=== PATIENT | male | born 1930 | race Caucasian/White ===

== ENCOUNTER 2017-06-11 00:59 | Inpatient (IN) | payer MEDICARE ==
[2017-06-11] VITALS (13 sets, daily range): BP systolic 126–189; BP diastolic 65–103; PULSE 53–78; RESP 16–20; TEMP 97.8–98.3; O2SAT 94–99
[~2017-06-11] VITALS: Ht 172.7 cm; Wt 77.0 kg
[~2017-06-11 00:59] MED LIST: CELE100; ROSU5
[2017-06-11] MEDS ORDERED: ROSU10 PO ×2 (01:32→01:40)
[2017-06-11] MEDS ORDERED: CELE100C PO ×2 (01:33→01:34)
[2017-06-11] MEDS ORDERED: ROSU5 PO (01:33)
[2017-06-11] MEDS ORDERED: LISI10TA3 PO (01:38)
[2017-06-11] MEDS ORDERED: CELE200C PO (01:39)
--- NOTE | 2017-06-11 01:44 | PD ---
HPI Chief Complaint: Chest Pain Time Seen by Provider: 01:37 Travel History International Travel<30 days: No Contact w/Intl Traveler<30days: No Traveled to known affect area: No History of Present Illness HPI The patient is a 86-year-old male who presents to the emergency department for chest pain. The patient was playing golf earlier today when he developed substernal chest pain which she describes as "indigestion ". The pain was nonradiating, described as indigestion, not associated with any shortness of breath, nausea, vomiting, or abdominal pain. The patient states this started to spray: He went home, the chest pain resolved. The initial chest pain lasted for approximately 20 minutes. The patient then was lying down earlier tonight watching TV when he developed substernal chest pain again which he described as indigestion. The pain lasted for 2 hours and then resolved. The patient does have a history of hypertension and hyperlipidemia, however, denies any known history of coronary artery disease, tobacco use, or diabetes. The patient denies having a previous stress test or cardiac catheterization. He denies any exertional symptoms except for the chest pain while playing golf. The patient's primary physician is Dr. Gabriele Winter. ON LICENSE OF [facility] Past Medical History Arthritis: Yes High Cholesterol: Yes Diminished Hearing: Yes ([place]) Past Surgical History Genitourinary Surgery: Yes (FOR DIFFICULTY URINATING) Social History Alcohol Use: Yes (RARE) Tobacco Use: No Substance Use: No Allergies-Medications (Allergen,Severity, Reaction): Coded Allergies: zolpidem (Unverified Allergy, Mild, "OUT OF IT", 06/11/17) Reported Meds & Prescriptions Reported Meds & Active Scripts Active Reported Crestor (Rosuvastatin Calcium) 10 Mg Tab 10 Mg PO DAILY Celebrex (Celecoxib) 200 Mg Cap 200 Mg PO DAILY Lisinopril 10 Mg Tab 10 Mg PO DAILY Review of Systems Except as stated in HPI: all other systems reviewed are Neg HENT: No: Lightheadedness Cardiovascular: Positive: Chest Pain or Discomfort, No: Diaphoresis, Dyspnea on exertion Respiratory: No: Shortness of Breath Gastrointestinal: Positive: Indigestion, No: Nausea, Vomiting, Abdominal Pain Musculoskeletal: Positive: Edema Neurologic: No: Dizziness Physical Exam Narrative GENERAL: Awake, alert, nontoxic-appearing 86 year old male who appears his stated age and is in no acute respiratory distress. SKIN: Focused skin assessment warm/dry. HEAD: Atraumatic. Normocephalic. EYES: No injection or drainage. ENT: No nasal bleeding or discharge. Mucous membranes pink and moist. NECK: Trachea midline. No JVD. CARDIOVASCULAR: Regular rate and rhythm. No murmur appreciated. RESPIRATORY: No accessory muscle use. Clear to auscultation. Breath sounds equal bilaterally. GASTROINTESTINAL: Abdomen soft, non-tender, nondistended. No epigastric tenderness. MUSCULOSKELETAL: No obvious deformities. No clubbing. No cyanosis. Trace pitting edema lower extremity is bilateral. NEUROLOGICAL: Awake and alert. No obvious cranial nerve deficits. Motor grossly within normal limits. Normal speech. PSYCHIATRIC: Appropriate mood and affect; insight and judgment normal. Data Data Last Documented VS Vital Signs Date Time Temp Pulse Resp B/P (MAP) Pulse Ox O2 Delivery O2 Flow Rate FiO2 06/11/17 01:49 153/88 (109) 134/65 (88) 06/11/17 01:41 69 18 98 Room Air 06/11/17 01:01 98.3 Orders Orders Electrocardiogram (06/11/17 ) Electrocardiogram (06/11/17 01:37) Ckmb (Isoenzyme) Profile (06/11/17 01:37) Complete Blood Count With Diff (06/11/17 01:37) Comprehensive Metabolic Panel (06/11/17 01:37) Magnesium (Mg) (06/11/17 01:37) Prothrombin Time / Inr (Pt) (06/11/17 01:37) Act Partial Throm Time (Ptt) (06/11/17 01:37) Troponin I (06/11/17:37) Lipase (06/11/17 01:37) Chest, Single Ap (06/11/17 01:37) Ecg Monitoring (06/11/17 01:37) Bilateral Bp Monitoring (06/11/17 01:37) Iv Access Insert/Monitor (06/11/17:37) Oximetry (06/11/17 01:37) Oxygen Administration (06/11/17 01:37) Aspirin Chew (Aspirin Chew) (06/11/17 01:45) Sodium Chloride 0.9% Flush (Ns Flush) (06/11/17 01:45) Sodium Chlorid 0.9% 500 Ml Inj (Ns 500 M (06/11/17 01:45) CKMB (06/11/17 01:40) CKMB% (06/11/17 01:40) Heparin Infusion ADITHYA.Q1H (06/11/17 02:26) Heparin Inj (Heparin Inj) (06/11/17 02:30) Heparin Inj (Heparin Inj) (06/11/17 08:30) Heparin Inj (Heparin Inj) (06/11/17 08:30) Heparin-D5w 25,000 U/250 Ml (Heparin-D5w (06/11/17 02:30) Cbc No Diff, Includes Plts (06/14/17 06:00) Act Partial Throm Time (Ptt) (06/11/17 09:26) Occult Blood (Hemoccult) Stool (06/11/17 02:26) Admit Order (Ed Use Only) (06/11/17 02:34) Labs Laboratory Tests Test 06/11/17 01:40 White Blood Count 8.4 TH/MM3 Red Blood Count 5.19 MIL/MM3 Hemoglobin 16.3 GM/DL Hematocrit 47.8 % Mean Corpuscular Volume 92.2 FL Mean Corpuscular Hemoglobin 31.4 PG Mean Corpuscular Hemoglobin Concent 34.0 % Red Cell Distribution Width 15.1 % Platelet Count 174 TH/MM3 Mean Platelet Volume 8.4 FL Neutrophils (%) (Auto) 77.5 % Lymphocytes (%) (Auto) 13.0 % Monocytes (%) (Auto) 5.3 % Eosinophils (%) (Auto) 3.7 % Basophils (%) (Auto) 0.5 % Neutrophils # (Auto) 6.5 TH/MM3 Lymphocytes # (Auto) 1.1 TH/MM3 Monocytes # (Auto) 0.4 TH/MM3 Eosinophils # (Auto) 0.3 TH/MM3 Basophils # (Auto) 0.0 TH/MM3 CBC Comment DIFF FINAL Differential Comment Prothrombin Time 10.0 SEC Prothromb Time International Ratio 0.9 RATIO Activated Partial Thromboplast Time 22.6 SEC Blood Urea Nitrogen 23 MG/DL Creatinine 1.28 MG/DL Random Glucose 97 MG/DL Total Protein 7.7 GM/DL Albumin 3.6 GM/DL Calcium Level 9.1 MG/DL Magnesium Level 2.0 MG/DL Alkaline Phosphatase 82 U/L Aspartate Amino Transf (AST/SGOT) 34 U/L Alanine Aminotransferase (ALT/SGPT) 39 U/L Total Bilirubin 0.5 MG/DL Sodium Level 140 MEQ/L Potassium Level 4.1 MEQ/L Chloride Level 106 MEQ/L Carbon Dioxide Level 26.7 MEQ/L Anion Gap 7 MEQ/L Estimat Glomerular Filtration Rate 53 ML/MIN Total Creatine Kinase 189 U/L Creatine Kinase MB 8.0 NG/ML Troponin I 0.30 NG/ML Lipase 239 U/L MDM Medical Decision Making Medical Screen Exam Complete: Yes Emergency Medical Condition: Yes Medical Record Reviewed: Yes Interpretation(s) EKG reveals normal sinus rhythm with a rate of 75. Nonspecific ST and T-wave changes. Nonspecific T wave changes noted in lead V6, 1, and aVL. ST changes noted in lead 2 and aVF. No old EKG to compare. Last Impressions Chest X-Ray 06/11/17 0137 Signed Impressions: Service Date/Time: Sunday, June 11, 2017 01:39 - CONCLUSION: No acute disease. Jose Hamlin MD Laboratory Tests Test 06/11/17 01:40 White Blood Count 8.4 TH/MM3 Red Blood Count 5.19 MIL/MM3 Hemoglobin 16.3 GM/DL Hematocrit 47.8 % Mean Corpuscular Volume 92.2 FL Mean Corpuscular Hemoglobin 31.4 PG Mean Corpuscular Hemoglobin Concent 34.0 % Red Cell Distribution Width 15.1 % Platelet Count 174 TH/MM3 Mean Platelet Volume 8.4 FL Neutrophils (%) (Auto) 77.5 % Lymphocytes (%) (Auto) 13.0 % Monocytes (%) (Auto) 5.3 % Eosinophils (%) (Auto) 3.7 % Basophils (%) (Auto) 0.5 % Neutrophils # (Auto) 6.5 TH/MM3 Lymphocytes # (Auto) 1.1 TH/MM3 Monocytes # (Auto) 0.4 TH/MM3 Eosinophils # (Auto) 0.3 TH/MM3 Basophils # (Auto) 0.0 TH/MM3 CBC Comment DIFF FINAL Differential Comment Prothrombin Time 10.0 SEC Prothromb Time International Ratio 0.9 RATIO Activated Partial Thromboplast Time 22.6 SEC Blood Urea Nitrogen 23 MG/DL Creatinine 1.28 MG/DL Random Glucose 97 MG/DL Total Protein 7.7 GM/DL Albumin 3.6 GM/DL Calcium Level 9.1 MG/DL Magnesium Level 2.0 MG/DL Alkaline Phosphatase 82 U/L Aspartate Amino Transf (AST/SGOT) 34 U/L Alanine Aminotransferase (ALT/SGPT) 39 U/L Total Bilirubin 0.5 MG/DL Sodium Level 140 MEQ/L Potassium Level 4.1 MEQ/L Chloride Level 106 MEQ/L Carbon Dioxide Level 26.7 MEQ/L Anion Gap 7 MEQ/L Estimat Glomerular Filtration Rate 53 ML/MIN Total Creatine Kinase 189 U/L Troponin I 0.30 NG/ML Lipase 239 U/L Differential Diagnosis Differential diagnosis includes acute coronary syndrome, STEMI, esophageal spasm , GERD, pancreatitis, gastritis, peptic ulcer disease. Narrative Course IV was established, labs are drawn and sent, and the patient was placed on cardiac telemetry monitoring and continuous pulse oximetry monitoring. EKG was ordered and interpreted. Chest x-ray was obtained. The patient was chest pain- free upon arrival, therefore, no nitroglycerin sublingual was administered. The patient did receive 162 mg of aspirin orally. Chest x-rays unremarkable. Initial troponin is 0.3, patient does have EKG changes but no ST elevations indicate STEMI. The patient appears to have a NSTEMI. The patient was reevaluated at 2:20 AM, he was still chest pain-free. The patient was placed on a heparin drip and will be admitted to the medical service with consultation to cardiology. The patient be kept nothing by mouth. I did advise the patient and his at bedside of the results and future plan. Physician Communication Physician Communication The on-call medical service was paged for admission. I discussed the patient with Dr. Alfaro who agrees with admission. Diagnosis Primary Impression: NSTEMI (non-ST elevated myocardial infarction) Admitting Information Admitting Physician Requests: Admit Condition: Stable Pranay Choe MD Jun 11, 2017 01:44
[2017-06-11] MEDS ORDERED: ASPIRIN 81 MG CHEW TAB PO ONE (01:45)
[2017-06-11] MEDS ORDERED: SODIUM CHLORID 0.9% 500 ML INJ 500 ML IV ONE (01:45)
[2017-06-11] MEDS ORDERED: SODIUM CHLORIDE 0.9% FLUSH 10 ML FLUSH IVF PRN (01:45)
[2017-06-11 01:50] LABS: AUTOMATED NEUTROPHIL # 6.5 TH/MM3 (1.8-7.7); BASOPHIL % 0.5 % (0.0-2.0); EOSINOPHIL # 0.3 TH/MM3 (0-0.4); EOSINOPHIL % 3.7 % (0.0-4.0); HEMATOCRIT 47.8 % (39.0-51.0); HEMO FLAGS DIFF FINAL; LYMPHOCYTE # 1.1 TH/MM3 (1.0-4.8); MEAN CELL VOLUME 92.2 FL (80.0-100.0); MEAN CORPUSCULAR HEMOGLOBIN 31.4 PG (27.0-34.0); MONO % 5.3 % (0.0-8.0); NEUT % 77.5 % (16.0-70.0); PLATELET COUNT 174 TH/MM3 (150-450); RED BLOOD COUNT 5.19 MIL/MM3 (4.50-5.90); RED CELL DISTRIBUTION WIDTH 15.1 % (11.6-17.2); WHITE BLOOD COUNT 8.4 TH/MM3 (4.0-11.0)
[2017-06-11 01:59] LABS: APTT (PATIENT) 22.6 SEC (24.3-30.1); INTERNATIONAL NORMALIZED RATIO 0.9 RATIO
--- NOTE | 2017-06-11 02:01 | RADRPT ---
EXAM DATE/TIME: 06/11/2017 01:39 [place] COMPARISON: No previous studies available for comparison. INDICATIONS : Chest pain while playing golf MEDICAL HISTORY : Hypercholesterolemia. SURGICAL HISTORY : Laminectomy ENCOUNTER: Initial ACUITY: 1 day PAIN SCORE: 7/10 LOCATION: Bilateral chest FINDINGS: A single view of the chest demonstrates the lungs to be symmetrically aerated without evidence of mas s, infiltrate or effusion. The cardiomediastinal contours are unremarkable. Osseous structures are intact. CONCLUSION: No acute disease. Jose Hamlin MD on June 11, 2017 at 1:59 Board Certified Radiologist. This report was verified electronically.
[2017-06-11 02:13] LABS: ALT (GPT) 39 U/L (12-78); ANION GAP 7 MEQ/L (5-15); AST (GOT) 34 U/L (15-37); BICARBONATE 26.7 MEQ/L (21.0-32.0); BLOOD UREA NITROGEN 23 MG/DL (7-18); CHLORIDE 106 MEQ/L (98-107); GLOMERULAR FILTRATION RATE 53 ML/MIN (>89); POTASSIUM 4.1 MEQ/L (3.5-5.1); SODIUM (NA) 140 MEQ/L (136-145)
[2017-06-11 02:17] LABS: ALKALINE PHOSPHATASE 82 U/L (45-117); CREATINE KINASE 189 U/L (39-308); TOTAL BILIRUBIN ADULT 0.5 MG/DL (0.2-1.0)
[2017-06-11] MEDS ORDERED: HEPARIN SODIUM - IV 10,000 UNITS/10 ML VIAL IV ONE (02:30)
[2017-06-11] MEDS ORDERED: HEPARIN-D5W 25,000 U/250 ML 250 ML IV ONE (02:30)
[2017-06-11] MEDS ORDERED: LACTULOSE SYRUP 20 GM/30 ML CUP PO PRN (02:45)
[2017-06-11] MEDS ORDERED: ACETAMINOPHEN/HYDROcodone 325 MG/5 MG TAB PO PRN (02:45)
[2017-06-11] MEDS ORDERED: BISACODYL 10 MG SUPP RECTAL PRN (02:45)
[2017-06-11] MEDS ORDERED: MORPHINE SULFATE 4 MG/ML INJ IV PUSH PRN (02:45)
[2017-06-11] MEDS ORDERED: ONDANSETRON HCL 4 MG/2 ML VIAL IVP PRN (02:45)
[2017-06-11] MEDS ORDERED: SODIUM CHLORIDE 0.9% FLUSH 10 ML FLUSH IV FLUSH PRN ×2 (02:45→13:15)
[2017-06-11] MEDS ORDERED: SENNOSIDES 8.6 MG TAB PO PRN (02:45)
[2017-06-11] MEDS ORDERED: MAGNESIUM HYDROXIDE SUSP 30 ML CUP PO PRN (02:45)
[2017-06-11] MEDS ORDERED: ACETAMINOPHEN 325 MG TAB PO PRN ×2 (02:45→13:15)
[2017-06-11] MEDS: SODIUM CHLOR 0.9% 1000 ML INJ 1,000 ML IV SCH ×2 (02:54→12:42)
--- NOTE | 2017-06-11 04:32 | HHI.HP ---
HPI [facility] Primary Care Physician Unknown Admission Diagnosis NSTEMI Diagnoses: (1) NSTEMI (non-ST elevated myocardial infarction) Diagnosis: Principal (2) Dehydration Diagnosis: Principal (3) HTN (hypertension) Diagnosis: Principal Travel History International Travel<30 Days: No Contact w/Intl Traveler <30 Da: No Traveled to Known Affected Are: No History of Present Illness This is an 86-year-old male with a PMH of HTN and Hyperlipidemia who presented to the ER with complaint of chest pain starting earlier tonight. States had acute onset of substernal chest pain while watching TV, thought it was indigestion, however had recurrent episode shortly after lasting several hours. No associated SOB or diaphoresis. On arrival, BP 129/103, HR 78, O2 sat 99% on RA, Afebrile. CBC unremarkable. Chemistry unremarkable except for GFR 53, BUN 23. Troponin 0.30. INR 0.9. EKG with no acute ischemia. CXR negative. Started on Heparin gtt in ER. Review of Systems Except as stated in HPI: all other systems reviewed are Neg ROS: 14 point review of systems otherwise negative. Past Family Social History Past Medical History PMH: HTN and Hyperlipidemia Past Surgical History PAST SURGICAL HISTORY: Bladder Surgery Allergies: Coded Allergies: zolpidem (Unverified Allergy, Mild, "OUT OF IT", 06/11/17) Family History PAST FAMILY HISTORY: Reviewed. No h/o DM or CAD Social History PAST SOCIAL HISTORY: Occasional alcohol. Negative for tobacco or drugs. Physical Exam Vital Signs Vital Signs Date Time Temp Pulse Resp B/P (MAP) Pulse Ox O2 Delivery O2 Flow Rate FiO2 06/11/17 04:25 98.0 60 18 126/75 (92) 94 06/11/17 01:49 153/88 (109) 134/65 (88) 06/11/17 01:41 69 18 153/88 (109) 98 Room Air 134/65 (88) 06/11/17 01:38 98 Room Air 06/11/17 01:38 98 Room Air 06/11/17 01:36 71 16 153/88 (109) 97 Room Air 06/11/17 01:01 98.3 78 16 189/103 (131) 99 Room Air Physical Exam PE: GENERAL: Elderly male in no acute distress. HEENT: PERRLA, EOMI. No scleral icterus or conjunctival pallor. No lid lag or facial droop. CARDIOVASCULAR: Regular rate and rhythm. No obvious murmurs to auscultation. No chest tenderness to palpation. RESPIRATORY: No obvious rhonchi or wheezing. Clear to auscultation. Breath sounds equal bilaterally. GASTROINTESTINAL: Abdomen soft, non-tender, nondistended. BS normal. MUSCULOSKELETAL: Extremities without clubbing, cyanosis, or edema. No obvious deformities. NEUROLOGICAL: Awake, alert and oriented x4. No focal neurologic deficits. Moving both upper and lower extremities spontaneously. Laboratory Laboratory Tests Test 06/11/17 01:40 White Blood Count 8.4 Red Blood Count 5.19 Hemoglobin 16.3 Hematocrit 47.8 Mean Corpuscular Volume 92.2 Mean Corpuscular Hemoglobin 31.4 Mean Corpuscular Hemoglobin Concent 34.0 Red Cell Distribution Width 15.1 Platelet Count 174 Mean Platelet Volume 8.4 Neutrophils (%) (Auto) 77.5 Lymphocytes (%) (Auto) 13.0 Monocytes (%) (Auto) 5.3 Eosinophils (%) (Auto) 3.7 Basophils (%) (Auto) 0.5 Neutrophils # (Auto) 6.5 Lymphocytes # (Auto) 1.1 Monocytes # (Auto) 0.4 Eosinophils # (Auto) 0.3 Basophils # (Auto) 0.0 CBC Comment DIFF FINAL Differential Comment Prothrombin Time 10.0 Prothromb Time International Ratio 0.9 Activated Partial Thromboplast Time 22.6 Blood Urea Nitrogen 23 Creatinine 1.28 Random Glucose 97 Total Protein 7.7 Albumin 3.6 Calcium Level 9.1 Magnesium Level 2.0 Alkaline Phosphatase 82 Aspartate Amino Transf (AST/SGOT) 34 Alanine Aminotransferase (ALT/SGPT) 39 Total Bilirubin 0.5 Sodium Level 140 Potassium Level 4.1 Chloride Level 106 Carbon Dioxide Level 26.7 Anion Gap 7 Estimat Glomerular Filtration Rate 53 Total Creatine Kinase 189 Creatine Kinase MB 8.0 Troponin I 0.30 Lipase 239 Result Diagram: 06/11/1713906/11/17139 Caprini VTE Risk Assessment Caprini VTE Risk Assessment: Mod/High Risk (score >= 2) Caprini Risk Assessment Model Point Value = 1 Point Value = 2 Point Value = 3 Point Value = 5 Age 41-60 Minor surgery BMI > 25 kg/m2 Swollen legs Varicose veins or History of unexplained or recurrent spontaneous Oral contraceptives or hormone replacement Sepsis (< 1 month) Serious lung disease, including pneumonia (< 1 month) Abnormal pulmonary function Acute myocardial infarction Congestive heart failure (< 1 month) History of inflammatory bowel disease Medical patient at bed rest Age 61-74 Arthroscopic surgery Major open surgery (> 45 min) Laparoscopic surgery (> 45 min) Malignancy Confined to bed (> 72 hours) Immobilizing plaster cast Central venous access Age >= 75 History of VTE Family history of VTE Factor V Leiden Prothrombin [id number] Lupus anticoagulant Anticardiolipin antibodies Elevated serum homocysteine Heparin-induced thrombocytopenia Other congenital or acquired thrombophilia Stroke (< 1 month) Elective arthroplasty Hip, pelvis, or leg fracture Acute spinal cord injury (< 1 month) Prophylaxis Regimen Total Risk Factor Score Risk Level Prophylaxis Regimen 0-1 Low Early ambulation 2 Moderate Order ONE of the following: *Sequential Compression Device (SCD) *Heparin 5000 units SQ BID 3-4 Higher Order ONE of the following medications: *Heparin 5000 units SQ TID *Enoxaparin/Lovenox 40 mg SQ daily (WT < 150 kg, CrCl > 30 mL/min) *Enoxaparin/Lovenox 30 mg SQ daily (WT < 150 kg, CrCl > 10-29 mL/min) *Enoxaparin/Lovenox 30 mg SQ BID (WT < 150 kg, CrCl > 30 mL/min) AND/OR *Sequential Compression Device (SCD) 5 or more Highest Order ONE of the following medications: *Heparin 5000 units SQ TID (Preferred with Epidurals) *Enoxaparin/Lovenox 40 mg SQ daily (WT < 150 kg, CrCl > 30 mL/min) *Enoxaparin/Lovenox 30 mg SQ daily (WT < 150 kg, CrCl > 10-29 mL/min) *Enoxaparin/Lovenox 30 mg SQ BID (WT < 150 kg, CrCl > 30 mL/min) AND *Sequential Compression Device (SCD) Assessment and Plan Problem List: (1) NSTEMI (non-ST elevated myocardial infarction) ICD Code: I21.4 - Non-ST elevation (NSTEMI) myocardial infarction Status: Acute (2) Dehydration ICD Code: E86.0 - Dehydration (3) HTN (hypertension) ICD Code: I10 - Essential (primary) hypertension Assessment and Plan A/P: 1. NSTEMI: c/o acute onset of chest pain, Trop 0.30, EKG w/ no acute ST changes. Started on Heparin gtt in ER, will continue w/ Heparin. ASA, Statin, Metoprolol. Consult Cardiology for further evaluation, NPO for possible Cath. NTG/Morphine prn. 2. Dehydration: GFR 53, BUN 23. IVF for hydration, repeat labs in am. 3. HTN: BP 180's on arrival, likely secondary to c/o chest pain. BP currently 126/75, HR 60. Will monitor. 4. DVT Prophylaxis: Heparin gtt 5. Social work for dc planning as needed. 6. Case discussed w/ ER physician at length. Physician Certification 2 Midnight Certification Type: Admission for Inpatient Services Order for Inpatient Services The services are ordered in accordance with Medicare regulations or non- Medicare payer requirements, as applicable. In the case of services not specified as inpatient-only, they are appropriately provided as inpatient services in accordance with the 2-midnight benchmark. Estimated LOS (days): 2 days is the estimated time the patient will need to remain in the hospital, assuming treatment plan goals are met and no additional complications. Post-Hospital Plan: Not yet determined Juliet Alfaro MD Jun 11, 2017 04:32
[2017-06-11] MEDS: ATORVASTATIN 20 MG TAB PO SCH (08:03)
[2017-06-11] MEDS: METOPROLOL TARTRATE 25 MG TAB PO SCH ×2 (08:03→21:00)
[2017-06-11] MEDS: DOCUSATE SODIUM 50 MG/SENNA 8.6 MG TAB PO SCH ×2 (08:03→21:00)
[2017-06-11] MEDS ORDERED: HEPARIN SODIUM - IV 10,000 UNITS/10 ML VIAL IV PRN ×2 (08:30)
[2017-06-11] MEDS ORDERED: ASPIRIN EC 81 MG TABEC PO SCH (09:00)
[2017-06-11] MEDS ORDERED: LISINOPRIL 10 MG TAB PO SCH (09:00)
[2017-06-11] MEDS ORDERED: SODIUM CHLORIDE 0.9% FLUSH 10 ML FLUSH IV FLUSH SCH (09:00)
[2017-06-11] MEDS ORDERED: MIDAZOLAM HCL 2 MG/2 ML VIAL ONE (11:44)
[2017-06-11] MEDS ORDERED: HEPARIN-NS/PF INJ 500 ML ONE (11:44)
[2017-06-11] MEDS ORDERED: NITROGLYCERIN INJ 5 ML ONE (11:44)
--- NOTE | 2017-06-11 11:53 | MB ---
cc: PILAR HANSEN M.D. DATE OF CONSULTATION: 06/11/2017 REASON FOR CONSULTATION Evaluation of chest pain and elevated troponin. CHIEF COMPLAINT Chest pain. HISTORY OF PRESENT ILLNESS This is an 86-year-old man with a history of hypertension and hyperlipidemia. He has never had any previous cardiac symptoms. He had chest pain yesterday after playing golf around 5:00 p.m. Then at 10:00 p.m. he got chest pain and it did not resolve, it took a few hours, and eventually resolved on their way to the hospital. He describes it as substernal discomfort like an indigestion. There is no family history of cardiac disease only a history of hypertension and hyperlipidemia. PAST MEDICAL HISTORY 1. Arthritis. 2. Low back pain. 3. Left total hip replacement. 4. Previous TURP. 5. Hypertension. 6. Hyperlipidemia. SOCIAL HISTORY He is from [place], [place], drinks alcohol rarely, has never smoked. ALLERGIES ZOLPIDEM. MEDICATIONS 1. Crestor 10 mg daily. 2. Celebrex 200 mg daily. 3. Lisinopril 10 mg daily. REVIEW OF SYSTEMS Noncontributory. PHYSICAL EXAMINATION GENERAL: A well-developed, well-nourished man in no acute distress. VITAL SIGNS: Vital signs are charted. HEENT: Exam unremarkable. NECK: No JVD. No bruits. CHEST: Clear to auscultation. CARDIAC: S1, S2, regular rate and rhythm. No murmurs or gallops. ABDOMEN: Soft, nontender. No masses or organomegaly. EXTREMITIES: No clubbing or cyanosis. He has trace lower extremity edema. Pulses are intact. LABORATORY Hematocrit 47.8, white count normal, platelet count 174,000. Creatinine 1.28. Troponin has gone from 0.30 to 0.45, indicative of a non-ST segment elevation PR. CPK-MB fraction is elevated as well. IMAGING Chest x-ray shows no acute disease. EKG EKG shows significant ST-T wave changes which combined with the troponin are compatible with ischemia. IMPRESSION An 86-year-old man physically active who presents with an acute non-ST segment elevation PR. His EKG is abnormal. He had prolonged chest pain last night. PLAN The plan is to perform diagnostic cardiac catheterization with possible intervention. Informed consent has been obtained from the patient in the presence of his significant other named Judi. Further therapy to be determined. MD SARAH Jones/MAURA /11:21 AM /11:40 AM
[2017-06-11] MEDS ORDERED: BIVALIRUDIN 250 MG VIAL ONE (12:16)
[2017-06-11] MEDS ORDERED: STERILE WATER FOR INJECTION 10 ML VIAL ONE (12:16)
--- NOTE | 2017-06-11 12:32 | EKG ---
Date Performed: 06/11/2017 Time Performed: 01:08:52 PTAGE: 86 years EKG: Sinus rhythm LEFT ANTERIOR FASCICULAR BLOCK NONSPECIFIC ST & T-WAVE ABNORMALITY ABNORMAL ECG NO PREVIOUS TRACING DOCTOR: Gabriele Orozco Interpretating Date/Time 06/11/2017 12:27:56
[2017-06-11] MEDS ORDERED: TICAGRELOR 90 MG TAB PO ONE (12:52)
[2017-06-11] MEDS ORDERED: BIVALIRUDIN INJ 250 MG in SODIUM CHLORIDE 0.9% INJ 50 ML IV SCH (13:05)
--- NOTE | 2017-06-11 13:10 | CATHPROC ---
[employer] HIS Report Study Information Study Number Admission Scheduled Start Study Start [id number] Jun 11 2017 2:36AM 06/11/2017 Jun 11 2017 11:32AM [place] [facility] Cardiac Catheterization Admit Source Facility Department Emergency department [facility] - Partner Marketing Intern Physician and Clinical Staff Initial MD Granados, Rikki Library Assistant Alina Rodgers,REY Other cathlab, cathlab Recorder Tiffanie Garcia,CEMENT [place] HELPER TECH2 Scrub Cody Diaz RCIS(BS) Procedures Performed Procedure Location (Site) Vessel Name Angiogram LV LV Ventricle Coronary Angiograms LCA Left Coronary Coronary Angiograms RCA Right Coronary Drug Eluting Inflatio CIRC Dist CIRC Drug Eluting Inflatio LAD Mid Left Coronary L Heart Cath PTCA CIRC Dist CIRC PTCA LAD Mid Left Coronary Wire insertion Fem Art (right) Femoral Art Equipment 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 145 INFINITI [id number] CATHETER *[id number] *[id number] 12:54 [facility]IG/[facility] ANGIOSEAL, FR6 VIP FR 6 Used *[id number] 11:44 MEDLINE INDUSTRIES PACK, CCL CUSTOM * Used *[id number] 11:44 MEDLINE PACER PEN, SKIN DUAL W/ RULER * Used *[id number] 12:25 MEDTRONIC BALLOON, 2.5 X 20MM EUPHORA 20MM Used *[id number] BALLOON, 4.0 X 15MM NC [id number] 12:32 MEDTRONIC 15MM Used EUPHORA *[id number] [id number] 12:42 MEDTRONIC STENT, 3.5 18MM TYE 3.5 18MM Used *[id number] 12:29 MEDTRONIC STENT, 3.5 22MM TYE 3.5 22MM [id number] 12:26 [employer] 30 KATHARINE INDEFLATOR Used *[id number] 11:44 [employer] SHEATH, FR6.5 PRELUDE 11CM FR 6.5 038ACT Used *[id number] [id number] 11:44 [employer] WIRE, 3MMJ .035 180CM 180CM Used *[id number] 11:44 NAMIC MANIFOLD, 4 PORT * Used *[id number] 12:20 NAMIC TUBING, HIGH PRESSURE 20" 20" Used *[id number] 11:44 [employer]COMED OMNIPAQUE, 350 MG, 100ML 100ML [id number] Used 12:10 NYCOMED OMNIPAQUE, 350 MG, 50ML 50ML [id number] Used [id number] 11:44 [facility] BLANKET,WARM AIR CCL * Used *[id number] Equipment Model, Serial, Lot Number and Expiration Data Description Model Number Serial Number Lot Number Expiration Date STENT, 3.5 18MM TYE [id number] 03-07-2019 STENT, 3.5 22MM TYE [id number] 04-19-2019 History: Current Medications Medication Dosage/Unit Route Frequency Last Date/Time Taken CRESTOR LISINOPRIL History: Allergies Allergy Reaction zolpidem "OUT OF IT" History: Risk Factors Family History of Hypertension Dyslipidemia Previous LA Previous Heart Failure Premature CAD Yes Yes No No No Prior Valve Prior PCI Prior CABG Surgery No No No Cerebrovascular Peripheral Artery Chronic Lung On Dialysis Diabetes Disease Disease Disease No No No No No History: Symptoms/Diagnosis Selection Items Angina-unstable Labs Hgb (g/dl) Hct (%) RBC (MIL/MM3) WBC (l/cumm) Platelets (thousands) 11.60-17.00 35.00-51.00 4.00-5.90 4.00-11.00 150.00-450.00 16.3 47.8 5.1 8.4 174 Glucose (mg/dl) BUN (mg/dl) Creatinine (mg/dl) BUN:Creatinine (1:x) 74.00-106.00 7.00-18.00 0.50-1.30 10.00-20.00 97 23 1.2 19.2 Na (meq/l) K (meq/l) Cl (meq/l) CO2 (mmol/L) Ca (mg/dl) 136.00-145.00 3.50-5.10 98.00-107.00 21.00-32.00 8.50-10.10 140 4.1 106 26.7 9.1 PT (sec) PTT (sec) INR (PTT:PT) 9.80-11.60 24.30-30.10 0.90-1.10 10 22.6 0.9 Troponin I (ng/ml) CPK-MB (ng/ML) 0.02-0.05 0.50-3.60 0.45 8.0 Medication Medication Total Dose (Bolus/Oral) Medication Total Dosage/Unit ANGIOMAX BOLUS 11 mL BRILINTA 180 mg NTG (IC) 200 mcg OXYGEN 2 l/min VERSED 1 mg Medications (Bolus/Oral) Medication Time Given Dosage/Unit Administered By Reason OXYGEN 06/11/2017 11:45:51 AM 2 l/min Alina Rodgers 2 l/min OXYGEN given in lab by Alina Rodgers RN via Nasal. Ordered by Rikki Granados. VERSED 06/11/2017 12:06:16 PM 1 mg Alina Rodgers 1 mg VERSED given in lab by Alina Rodgers RN in Right Antecubital via Peripheral IV. Ordered by Rikik Sung. ANGIOMAX BOLUS 06/11/2017 12:22:20 PM 11 mL Alina Rodgers 11 mL ANGIOMAX BOLUS given in lab by Alina Rodgers RN in Right Antecubital via Peripheral IV. Orde red by Rikki Granados. NTG (IC) 06/11/2017 12:35:19 PM 200 mcg Cody Diaz 200 mcg NTG (IC) given in lab by Cody Diaz RCIS(BS) in Right Groin via Intra-coronary. Ordered by Rikki Fu. BRILINTA 06/11/2017 12:57:18 PM 180 mg Alina Rodgers 180 mg BRILINTA given in lab by Alina Rodgers, REY via Oral. Ordered by Rikki Granados. Medication (Drip) Medication Time Given Dosage/Unit Concentration/Unit Diluent (ml) Solution ANGIOMAX DRIP 06/11/2017 12:23:32 PM 1.75 mg/kg/hr 250 mg 50 NaCl .9 1.75 mg/kg/hr ANGIOMAX DRIP given in lab by Alina Rodgers RN in Right Antecubital via Peripheral I V. Pump/Drip Flow = 26.25 ml/hr using NaCl .9 with a concentration of 250 mg in 50 ml. Ordered by Rikki Granados. IV Solutions 06/11/2017 11:44:49 AM 0 mL (IV) 500 NaCl .9 IV Solutions given in lab by Alina Rodgers RN in Right Antecubital via Peripheral IV. Pump/Drip Fl ow = 20 ml/hr using NaCl .9. Ordered by Rikki Granados. Initial Case Assessment Cardiovascular HR NIBP 54 150/87 Edema Present Skin color Skin None Normal Warm Dry Circulatory - Right Pulses Dorsalis Pedis Femoral 2 3 Scale (0,1,2,3,4,d) Circulatory - Left Pulses Dorsalis Pedis Femoral 2 3 Scale (0,1,2,3,4,d) Neurological State Oriented to time-place- Alert Moves all extremities person Respiration - General Respiration Rate SpO2 (%) (B/min) 14 98 Final Case Assessment Cardiovascular HR NIBP 59 153/96 Edema Present Skin color Skin None Normal Warm Dry Circulatory - Right Pulses Dorsalis Pedis Femoral 2 3 Scale (0,1,2,3,4,d) Circulatory - Left Pulses Dorsalis Pedis Femoral 2 3 Scale (0,1,2,3,4,d) Neurological State Oriented to time-place- Alert Moves all extremities person Respiration - General Respiration Rate SpO2 (%) O2 (lpm) (B/min) 14 98 2 Chronological Log Time Study Chronological Log 11:32:19 Patient arrived via Bed. 11:32:19 Patient Name, D.O.B, / Armband Verified By R.N. 11:32:20 Consent signed by the physician and the patient and verified by the Partner Marketing Intern staff. 11:32:21 Pre-op and post- op instructions given; patient acknowledges understanding of instructions. 11:32:22 Verbal Stimulation=2 Physical Stimulation=2 Airway=2 Respiration=2 TOTAL=8. (0=absent, 1=li mited, 2=present) 11:32:26 Patient has been NPO for More than 6Hrs. 11:32:26 NO Skin Breakdown- 11:32:28 Patient Warmer Placed on the Table. 11:32:32 A # 22 IV was noted in the Wrist (right). Grade = 0 11:32:37 A # 18 IV was noted in the Antecubital (right). Grade = 0 Vitals capture started with the following parameters, Patient=Adult, Interval=5 min, Initial Pr iatoyn=811 mmHg, 11:35:56 Deflation Rate=5 mmHg, Cuff placed on Right Arm 11:36:38 HR=54 bpm, VKYQ=601/87 mmhg, SpO2=98.0 %, Resp=14 B/min, Pain=0, Gurdeep=10, Arthur=2 Assessment: Initial Case, HR=54 BPM, OJYX=997/87 mmhg, Edema=None, Color=Normal, Skin = Warm, D ry Right Pulses: Will Ped=2, Femoral=3 11:37:42 Left Pulses: Will Ped=2, Femoral=3 Neurological: State=Alert, Ox3, SERNA Respiration: Resp=14 B/min, SpO2=98 % 11:41:37 HR=59 bpm, WSRX=016/92 mmhg, SpO2=97.0 %, Resp=14 B/min, Pain=0, Gurdeep=10, Arthur=2 IV Solutions given in lab by Alina Rodgers, REY in Right Antecubital via Peripheral IV. Pump/D rip Flow = 20 ml/hr 11:44:49 using NaCl .9. Ordered by Rikki Granados. 11:44:55 Bilateral groins prepped with 2% chlorhexidine, and draped after a 3 minute waiting time. 11:45:51 2 l/min OXYGEN given in lab by Alina Rodgers, REY via Nasal. Ordered by Rikki Granados. 11:46:38 HR=59 bpm, JNAA=186/88 mmhg, SpO2=96.0 %, Resp=20 B/min, Pain=0, Gurdeep=10, Arthur=2 11:49:22 Pressure channel 1 zeroed. 11:51:37 HR=58 bpm, KZEV=789/91 mmhg, SpO2=96.0 %, Resp=13 B/min, Pain=0, Gurdeep=10, Arthur=2 11:53:46 Reference ECG taken 11:56:38 HR=56 bpm, LBUO=712/91 mmhg, SpO2=98.0 %, Resp=13 B/min 12:01:39 HR=56 bpm, IGSM=496/97 mmhg, SpO2=99.0 %, Resp=12 B/min, Pain=0, Gurdeep=10, Arthur=2 Time Out. Correct patient, correct procedure, correct physician, power injector loaded,with con trast with surgical team 12:05:11 present. Time Out Concurred by MD and individual staff in procedure. 12:05:31 Case Start 12:06:16 1 mg VERSED given in lab by Alina Rodgers RN in Right Antecubital via Peripheral IV. Ord ered by Rikki Granados. 12:06:38 HR=60 bpm, UAUP=564/97 mmhg, SpO2=99.0 %, Resp=12 B/min, Pain=0, Gurdeep=10, Arthur=2 12:07:49 Access site was Right Femoral Artery. 12:07:58 A SHEATH, FR6.5 PRELUDE 11CM FR 6.5 was advanced into the Fem Art (right) using the Aster carreno Seldinger technique. A PIGTAIL ANG. 145 INFINITI CATHETER FR 6 was advanced over a wire. OMNIPAQUE, 350 MG, 50ML 50M L was used 12:09:26 for injections. Recorded Pressure: LV, HR=57, Condition=Condition 1 12:09:59 (Left Ventricle) LV 140/7/21 12:11:12 The LV was injected at 10 cc/sec for a total of 20. OMNIPAQUE, 350 MG, 50ML 50ML used. 12:11:41 HR=57 bpm, LNVA=882/86 mmhg, SpO2=99.0 %, Resp=12 B/min, Pain=0, Gurdeep=10, Arthur=2 Recorded Pressure: LV, Ao, HR=59, Condition=Condition 1 12:11:53 (Left Ventricle) LV 136/7/23, (Aorta) Ao 137/69/97 12:12:06 Catheter was removed A JL 4.5 INFINITI CATHETER FR 6 was advanced over a wire. OMNIPAQUE, 350 MG, 100ML 100ML was us ed for 12:12:41 injections. Recorded Pressure: Ao, HR=59, Condition=Condition 1 12:13:44 (Aorta) Ao 134/70/96 12:13:49 The LCA was injected and visualized at various angles. OMNIPAQUE, 350 MG, 100ML 100ML used . 12:16:38 HR=63 bpm, SMVI=906/85 mmhg, SpO2=99.0 %, Resp=16 B/min, Pain=0, Gurdeep=10, Arthur=2 12:16:38 Catheter was removed A 3DRC INFINITI CATHETER FR 6 was advanced over a wire. OMNIPAQUE, 350 MG, 100ML 100ML was used for 12:16:43 injections. 12:17:42 The RCA was injected and visualized at various angles. OMNIPAQUE, 350 MG, 100ML 100ML used . 12:20:36 Catheter was removed A XB 4.0 GUIDE CATHETER FR 6 was advanced over a wire. OMNIPAQUE, 350 MG, 100ML 100ML was used for 12:20:47 injections. 12:21:39 HR=57 bpm, APCX=585/89 mmhg, SpO2=97.0 %, Resp=13 B/min, Pain=0, Gurdeep=10, Arthur=2 12:22:14 A WIRE, BALANCE MIDDLEWEIGHT 190CM (INGRID) 190CM was inserted via Fem Art (right). 11 mL ANGIOMAX BOLUS given in lab by Alina Rodgers, REY in Right Antecubital via Peripheral IV . Ordered by Darwin 12:22:20 Brandt. 1.75 mg/kg/hr ANGIOMAX DRIP given in lab by Alina Rodgers, REY in Right Antecubital via Periph eral IV. Pump/Drip 12:23:32 Flow = 26.25 ml/hr using NaCl .9 with a concentration of 250 mg in 50 ml. Ordered by Bertha Granados. 12:24:10 Interventional wire has crossed the lesion A BALLOON, 2.5 X 20MM EUPHORA 20MM was inserted over WIRE, BALANCE MIDDLEWEIGHT 190CM (INGRID) 19 0CM 12:24:30 via the LAD Mid. A BALLOON, 2.5 X 20MM EUPHORA 20MM over a WIRE, BALANCE MIDDLEWEIGHT 190CM (INGRID) 190CM in the LAD 12:25:56 Mid was inflated using a 30 KATHARINE INDEFLATOR at 12 katharine for 25 sec. 12:26:38 HR=60 bpm, CCWP=031/91 mmhg, SpO2=98.0 %, Resp=14 B/min, Pain=0, Gurdeep=10, Arthur=2 A BALLOON, 2.5 X 20MM EUPHORA 20MM over a WIRE, BALANCE MIDDLEWEIGHT 190CM (INGRID) 190CM in the LAD 12:26:55 Mid was inflated using a 30 KTAHARINE INDEFLATOR at 8 katharine for 15 sec. 12:27:40 Balloon Removed. A STENT, 3.5 22MM TYE 3.5 22MM was advanced through a XB 4.0 GUIDE CATHETER FR 6 over a WIRE, BALANCE 12:28:24 MIDDLEWEIGHT 190CM (INGRID) 190CM. A STENT, 3.5 22MM TYE 3.5 22MM was deployed using a 30 KATHARINE INDEFLATOR at 12 atmospheres for 25 seconds in 12:30:11 the LAD Mid. 12:31:01 Delivery device removed A BALLOON, 4.0 X 15MM NC EUPHORA 15MM was inserted over WIRE, BALANCE MIDDLEWEIGHT 190CM (INGRID) 12:31:31 190CM via the LAD Mid. 12:32:26 HR=63 bpm, DCNF=638/101 mmhg, SpO2=99.0 %, Resp=14 B/min, Pain=0, Gurdeep=10, Arthur=2 A BALLOON, 4.0 X 15MM NC EUPHORA 15MM over a WIRE, BALANCE MIDDLEWEIGHT 190CM (INGRID) 190CM in t he 12:32:37 LAD Mid was inflated using a 30 KATHARINE INDEFLATOR at 16 katharine for 15 sec. A BALLOON, 4.0 X 15MM NC EUPHORA 15MM over a WIRE, BALANCE MIDDLEWEIGHT 190CM (INGRID) 190CM in t he 12:33:07 LAD Mid was inflated using a 30 KATHARINE INDEFLATOR at 20 katharine for 15 sec. 12:33:36 Balloon Removed. 12:35:19 200 mcg NTG (IC) given in lab by Cody Diza RCIS(BS) in Right Groin via Intra-coronary. Or dered by Rikki Granados. 12:36:47 HR=66 bpm, QKLI=362/92 mmhg, SpO2=98.0 %, Resp=14 B/min, Pain=0, Gurdeep=10, Arthur=2 12:38:38 Wire removed 12:38:40 A WIRE, BALANCE MIDDLEWEIGHT 190CM (INGRID) 190CM was inserted via Fem Art (right). CIRC 12:40:10 Interventional wire has crossed the lesion 12:41:41 HR=63 bpm, KYJK=111/93 mmhg, SpO2=97.0 %, Resp=15 B/min, Pain=0, Gurdeep=10, Arthur=2 A STENT, 3.5 18MM TYE 3.5 18MM was advanced through a XB 4.0 GUIDE CATHETER FR 6 over a WIRE, BALANCE 12:42:15 MIDDLEWEIGHT 190CM (INGRID) 190CM. A STENT, 3.5 18MM TYE 3.5 18MM was deployed using a 30 KATHARINE INDEFLATOR at 12 atmospheres for 40 seconds in 12:43:50 the CIRC Dist. 12:45:48 Delivery device removed 12:46:41 HR=64 bpm, XMET=196/95 mmhg, SpO2=95.0 %, Resp=13 B/min, Pain=0, Gurdeep=10, Arthur=2 A BALLOON, 3.5 12MM NC QUANTUM APEX MR 3.5 12MM over a WIRE, BALANCE MIDDLEWEIGHT 190CM (INGRID) 12:51:02 190CM in the CIRC Dist was inflated using a 30 KATHARINE INDEFLATOR at 16 katharine for 20 sec. A BALLOON, 3.5 12MM NC QUANTUM APEX MR 3.5 12MM over a WIRE, BALANCE MIDDLEWEIGHT 190CM (INGRID) 12:51:13 190CM in the CIRC Dist was inflated using a 30 KATHARINE INDEFLATOR at 20 katharine for 15 sec. 12:51:44 HR=63 bpm, CMBA=136/83 mmhg, SpO2=97.0 %, Resp=14 B/min, Pain=0, Gurdeep=10, Arthur=2 12:52:06 Balloon Removed. 12:52:10 Wire removed 12:52:17 Catheter was removed 12:53:05 Catheter(s) removed without difficulty 12:53:06 An injection in the Fem Art (right) was made through the SHEATH, FR6.5 PRELUDE 11CM FR 6.5. 12:53:51 ANGIOSEAL, FR6 VIP FR 6 placement in the Fem Art (right) 12:55:20 Sterile dressing applied to site 12:55:39 Case End 12:56:43 HR=61 bpm, NUAM=174/95 mmhg, SpO2=98.0 %, Resp=18 B/min, Pain=0, Gurdeep=10, Arthur=2 12:57:18 180 mg BRILINTA given in lab by Alina Rodgers, RN via Oral. Ordered by Rikki Granados. 13:01:44 HR=59 bpm, VDTD=447/96 mmhg, SpO2=98.0 %, Resp=14 B/min, Pain=0, Gurdeep=10, Arthur=2 Assessment: Final Case, HR=59 BPM, AUSB=631/96 mmhg, Edema=None, Color=Normal, Skin = Warm, Dr y Right Pulses: Will Ped=2, Femoral=3 13:04:04 Left Pulses: Will Ped=2, Femoral=3 Neurological: State=Alert, Ox3, SERNA Respiration: Resp=14 B/min, SpO2=98 %, O2=2 lpm 13:04:12 Vitals capture stopped. 13:07:18 No case complications noted. 13:07:20 Cine recording checked. 13:07:23 Bedside Report will be given. 13:07:24 Contrast Scanned 13:07:26 A Left Heart Cath was performed. 13:07:29 [facility] 13[facility]07[facility]30 Clinical correlaton risk stratification. End Study - Contrast Media Used In Study Contrast Total Opened (mL) Total Used (mL) Total Wasted (mL) Omnipaque 225 225 0 End Study - Maximum Contrast Load Max Contrast Load (mL) 312.5 End Study - Radiation Exposure Fluoro Time (minutes) 12.3 End Study - Patient Disposition Complications Transferred To Interventional Outcome No Telemetry Bed successful
[2017-06-11] MEDS ORDERED: oxyCODONE/ACETAMINOPHEN 5 MG/325 MG TAB PO PRN (13:15)
[2017-06-11] MEDS ORDERED: ONDANSETRON HCL 4 MG/2 ML VIAL IV PUSH PRN (13:15)
[2017-06-11] MEDS ORDERED: BACITRACIN OINT 0.9 GM PKT TOP ONE (14:00)
[2017-06-11] MEDS ORDERED: SODIUM CHLOR 0.9% 1000 ML INJ 1,000 ML IV SCH (14:00)
--- NOTE | 2017-06-11 14:21 | MA ---
cc: PILAR HANSEN M.D. DATE: 06/11/2017 PROCEDURE PERFORMED 1. Left heart catheterization. 2. Left ventriculography. 3. Coronary angiography. 4. Balloon angioplasty and stenting of the mid left anterior descending coronary artery. 5. Balloon angioplasty and stenting of the distal circumflex vessel. 6. Right femoral angiography with uncomplicated Angio-Seal placement. DESCRIPTION OF PROCEDURE The patient was brought to the cardiac catheterization laboratory technician in a fasting state. The right groin was prepped and draped in sterile fashion. Using 1% lidocaine for local anesthesia a 6.5 Montserratian sheath was inserted in the right femoral artery. Left ventricular pressure was then recorded using a pigtail catheter followed by left ventriculography and then a pullback. Coronary angiography was then completed using a left 4.5 Diana for the left coronary artery and a 3-D RC for the right coronary artery. I decided to perform intervention on the left coronary artery. A 6 Montserratian XB 4 guiding catheter engaged the left main nicely. Intravenous Angiomax was started for anticoagulation. I wired the left anterior descending artery. I predilated it with a 2.5 mm balloon. I stented it with a 3.5 x 22 mm Resolute Amish stent at 12 atmospheres. I used a 4.0 x 12 mm noncompliant balloon in the center of the stent at 18 atmospheres and on the proximal edge of the stent at 20 atmospheres. An outstanding result was achieved. There was a small area of disease spasm distal to the lesion which resolved with nitroglycerin. I then directed the guidewire down the circumflex vessel. I directly stented the distal circumflex with a 3.5 x 18 mm Resolute stent at 12 atmospheres. I post dilated the central portion of the stent with a 3.5 mm noncompliant balloon at 16 atmospheres and then along the proximal edge at 20 atmospheres. An excellent angiographic result was achieved. RIGHT FEMORAL ANGIOGRAPHY Angiography was obtained of the right femoral artery via the sheath followed by uncomplicated Angio-Seal placement. There were no complications. FINDINGS HEMODYNAMICS The left ventricular pressure is 136/7 with an end-diastolic pressure of 23. The aortic pressure is 134/70 with a mean of 96. LEFT VENTRICULOGRAPHY The left ventriculography shows multiple areas of coronary artery calcification. The overall ejection fraction is normal at 55% with slight apical hypokinesis. CORONARY ANGIOGRAPHY The left main coronary is large and normal-appearing. It trifurcates into the LAD, a large ramus intermediate branch and a dominant circumflex vessel. The LAD has 10-20% proximal irregularities and has a 99% mid stenosis with only MEGGAN-II flow. The ramus intermediate branch has 25% proximal disease. The circumflex artery gives off a major obtuse marginal branch which appears normal. The distal circumflex vessel before a large posterior ascending artery branch has an 80% eccentric stenosis. RESULTS OF STENTING Following stenting of the mid LAD a 0% residual stenosis has been achieved. MEGGAN flow went from II-III post intervention. Following stenting of the distal circumflex vessel a 0% residual stenosis has been achieved with normal flow. PLAN The patient will be maintained on aspirin and Brilinta. Anticipate discharge home tomorrow if he remains stable. MD SARAH Jones/MAURA /1:02 PM /2:07 PM
[2017-06-11] MEDS ORDERED: IOHEXOL 350 MG/ML 50 ML BTL (for Cath Lab) OTHER ONE (17:00)
[2017-06-11] MEDS ORDERED: IOHEXOL 350 MG/ML 100 ML BTL (for Cath Lab) OTHER ONE (17:00)
[2017-06-11] MEDS: SODIUM CHLORIDE 0.9% FLUSH 10 ML FLUSH IV FLUSH SCH (21:00)
[2017-06-12] VITALS (11 sets, daily range): BP systolic 147–154; BP diastolic 70–86; PULSE 51–65; RESP 20; TEMP 97.9–98.2; O2SAT 97–98
[2017-06-12 05:20] LABS: AUTOMATED NEUTROPHIL # 5.2 TH/MM3 (1.8-7.7); BASOPHIL % 0.5 % (0.0-2.0); EOSINOPHIL # 0.2 TH/MM3 (0-0.4); EOSINOPHIL % 2.8 % (0.0-4.0); HEMATOCRIT 41.7 % (39.0-51.0); HEMO FLAGS DIFF FINAL; LYMPH % 14.1 % (9.0-44.0); MEAN CELL VOLUME 92.4 FL (80.0-100.0); MEAN CORPUSCULAR HEMOGLOBIN 31.4 PG (27.0-34.0); MONO % 8.3 % (0.0-8.0); NEUT % 74.3 % (16.0-70.0); PLATELET COUNT 139 TH/MM3 (150-450); RED BLOOD COUNT 4.51 MIL/MM3 (4.50-5.90); RED CELL DISTRIBUTION WIDTH 15.2 % (11.6-17.2)
[2017-06-12 05:50] LABS: ALKALINE PHOSPHATASE 64 U/L (45-117); ALT (GPT) 32 U/L (12-78); ANION GAP 9 MEQ/L (5-15); AST (GOT) 28 U/L (15-37); BLOOD UREA NITROGEN 21 MG/DL (7-18); CHLORIDE 108 MEQ/L (98-107); CREATINE KINASE 103 U/L (39-308); GLOMERULAR FILTRATION RATE 64 ML/MIN (>89); HDL CHOLESTEROL 30.1 MG/DL (40.0-60.0); LDL CHOLESTEROL 69 MG/DL (0-99); POTASSIUM 3.8 MEQ/L (3.5-5.1); SODIUM (NA) 140 MEQ/L (136-145); TOTAL BILIRUBIN ADULT 0.8 MG/DL (0.2-1.0)
--- NOTE | 2017-06-12 07:17 | PD.CARD.PN ---
Subjective Subjective Remarks no angina. no complaints Objective Medications Current Medications Medications (Trade) Dose Ordered Sig/Aenl Route Start Time Stop Time Status Last Admin (NS Flush) 2 ml UNSCH PRN IVF 06/11/17 01:45 (Heparin Inj) 5,000 units UNSCH PRN IV 06/11/17 08:30 (Heparin Inj) 2,500 units UNSCH PRN IV 06/11/17 08:30 (Lopressor) 25 mg Q12HR PO 06/11/17 09:00 06/11/17 08:03 Sodium Chloride 1,000 ml @ 100 mls/hr Q10H IV 06/11/17 02:42 06/11/17 02:54 (Zofran Inj) 4 mg Q6H PRN IVP 06/11/17 02:45 (Tylenol) 650 mg Q6H PRN PO 06/11/17 02:45 (Morphine Inj) 2 mg Q3H PRN IV PUSH 06/11/17 02:45 (Grace-Colace) 1 tab BID PO 06/11/17 09:00 06/11/17 08:03 (Milk Of Magnesia Liq) 30 ml Q12H PRN PO 06/11/17 02:45 (Senokot) 17.2 mg Q12H PRN PO 06/11/17 02:45 (Dulcolax Supp) 10 mg DAILY PRN RECTAL 06/11/17 02:45 (Lactulose Liq) 30 ml DAILY PRN PO 06/11/17 02:45 (Prinivil) 10 mg DAILY PO 06/11/17 09:00 06/11/17 08:03 (Lipitor) 20 mg DAILY PO 06/11/17 09:00 06/11/17 08:03 (NS Flush) 2 ml UNSCH PRN IV FLUSH 06/11/17 13:15 (NS Flush) 2 ml BID IV FLUSH 06/11/17 21:00 06/11/17 21:00 (Tylenol) 325 mg Q4H PRN PO 06/11/17 13:15 (Percocet 5-325 Mg) 1 tab Q4H PRN PO 06/11/17 13:15 (Aspirin Chew) 81 mg DAILY PO 06/12/17 09:00 (Brilinta) 90 mg BID PO 06/12/17 09:00 (Zofran Inj) 4 mg Q4H PRN IV PUSH 06/11/17 13:15 Vital Signs / I&O Vital Signs Date Time Temp Pulse Resp B/P (MAP) Pulse Ox O2 Delivery O2 Flow Rate FiO2 06/12/17 06:00 64 06/12/17 05:12 54 06/12/17 04:04 97.9 59 20 147/70 (95) 97 06/12/17 04:00 59 06/12/17 03:57 59 06/12/17 03:00 57 06/12/17 02:00 55 06/12/17 01:00 55 06/12/17 00:00 51 06/11/17 23:00 53 06/11/17 22:20 98.0 53 20 140/76 (97) 97 06/11/17 22:00 57 06/11/17 21:39 98.2 57 20 163/81 (108) 98 06/11/17 21:30 57 06/11/17 14:14 97 Room Air 06/11/17 13:15 98 Room Air 06/11/17 08:00 56 06/11/17 08:00 97.8 61 16 154/89 (110) 97 I/O 06/11/17 06/11/17 06/11/17 06/12/17 06/12/17 06/12/17 07:00 15:00 23:00 07:00 15:00 23:00 Intake Total 500 ml 0 ml 240 ml Output Total 400 ml Balance 500 ml 0 ml -160 ml Intake Oral 0 ml 240 ml IV Total 500 ml Output Urine Total 400 ml Physical Exam GENERAL: Well developed, well nourished. No acute distress. HEENT: Jugular venous pressure is normal. CHEST: Lungs clear to auscultation bilaterally. Unlabored respiratory effort. CARDIAC: Regular rate and rhythm without S3, S4, or murmur. ABDOMEN: Soft, nontender, no hepatosplenomegaly. Bowel sounds present. EXTREMITIES: No clubbing, cyanosis, or edema. Right groin OK. Hematocrit drop is due to him being dehydrated/ hemoconcentrated. No bleeding. Laboratory Laboratory Tests Test 06/11/17 07:20 06/12/17 04:48 Troponin I 0.45 NG/ML White Blood Count 7.0 TH/MM3 Red Blood Count 4.51 MIL/MM3 Hemoglobin 14.2 GM/DL Hematocrit 41.7 % Mean Corpuscular Volume 92.4 FL Mean Corpuscular Hemoglobin 31.4 PG Mean Corpuscular Hemoglobin Concent 34.0 % Red Cell Distribution Width 15.2 % Platelet Count 139 TH/MM3 Mean Platelet Volume 8.5 FL Neutrophils (%) (Auto) 74.3 % Lymphocytes (%) (Auto) 14.1 % Monocytes (%) (Auto) 8.3 % Eosinophils (%) (Auto) 2.8 % Basophils (%) (Auto) 0.5 % Neutrophils # (Auto) 5.2 TH/MM3 Lymphocytes # (Auto) 1.0 TH/MM3 Monocytes # (Auto) 0.6 TH/MM3 Eosinophils # (Auto) 0.2 TH/MM3 Basophils # (Auto) 0.0 TH/MM3 CBC Comment DIFF FINAL Differential Comment Blood Urea Nitrogen 21 MG/DL Creatinine 1.09 MG/DL Random Glucose 92 MG/DL Total Protein 6.0 GM/DL Albumin 2.8 GM/DL Calcium Level 8.7 MG/DL Alkaline Phosphatase 64 U/L Aspartate Amino Transf (AST/SGOT) 28 U/L Alanine Aminotransferase (ALT/SGPT) 32 U/L Total Bilirubin 0.8 MG/DL Sodium Level 140 MEQ/L Potassium Level 3.8 MEQ/L Chloride Level 108 MEQ/L Carbon Dioxide Level 23.0 MEQ/L Anion Gap 9 MEQ/L Estimat Glomerular Filtration Rate 64 ML/MIN Total Creatine Kinase 103 U/L Triglycerides Level 169 MG/DL Cholesterol Level 133 MG/DL LDL Cholesterol 69 MG/DL HDL Cholesterol 30.1 MG/DL Cholesterol/HDL Ratio 4.41 RATIO Assessment and Plan Problem List: (1) Hyperlipidemia ICD Codes: E78.5 - Hyperlipidemia, unspecified Plan: Increase rosuvastatin to 20mg daily (2) NSTEMI (non-ST elevated myocardial infarction) ICD Codes: I21.4 - Non-ST elevation (NSTEMI) myocardial infarction Status: Acute (3) Dehydration ICD Codes: E86.0 - Dehydration Status: Resolved (4) HTN (hypertension) ICD Codes: I10 - Essential (primary) hypertension Plan: Increase lisinopril to 20mg daily (5) Stented coronary artery ICD Codes: Z95.5 - Presence of coronary angioplasty implant and graft Plan: Cont ASA 81mg and Brilinta 90mg bid (6) 2-vessel coronary artery disease ICD Codes: I25.10 - Atherosclerotic heart disease of [place] coronary artery without angina pectoris Plan: Complete revascularization with 2 drug eluting stents Assessment and Plan Stable for discharge. OV 2 weeks. No strenuous activity. Rikki Granados MD Jun 12, 2017 07:17
[2017-06-12] MEDS: SODIUM CHLORIDE 0.9% FLUSH 10 ML FLUSH IV FLUSH SCH (08:18)
[2017-06-12] MEDS: METOPROLOL TARTRATE 25 MG TAB PO SCH (08:19)
[2017-06-12] MEDS: DOCUSATE SODIUM 50 MG/SENNA 8.6 MG TAB PO SCH (08:21)
[2017-06-12] MEDS: ATORVASTATIN 20 MG TAB PO SCH (08:22)
[2017-06-12] MEDS ORDERED: TICAGRELOR 90 MG TAB PO SCH (09:00)
[2017-06-12] MEDS ORDERED: LISINOPRIL 20 MG TAB PO SCH (09:00)
[2017-06-12] MEDS ORDERED: ASPIRIN 81 MG CHEW TAB PO SCH (09:00)
[2017-06-12] MEDS ORDERED: METO25TA3 PO (09:54)
[2017-06-12] MEDS ORDERED: ASPI81CH25 PO (09:54)
[2017-06-12] MEDS ORDERED: BRIL90TA PO (09:54)
[2017-06-12] MEDS ORDERED: LISI-515 PO (09:54)
--- NOTE | 2017-06-12 09:59 | EKG ---
Date Performed: 06/12/2017 Time Performed: 05:44:58 PTAGE: 86 years EKG: Sinus bradycardia Left anterior fascicular block Ant/septal and lateral ST-T changes may be due to myocardial ischemia Abnormal ECG PREVIOUS TRACING : 06/11/2017 01.08 Compared to prior tracing no significant change DOCTOR: Gabriele Orozco Interpretating Date/Time 06/12/2017 09:56:20
--- NOTE | 2017-06-12 18:43 | HHI.DS ---
Discharge Summary Admission Date Jun 11, 2017 at 02:36 Discharge Date: Jun 12, 2017 Admitting Diagnosis NSTEMI (1) NSTEMI (non-ST elevated myocardial infarction) ICD Code: I21.4 - Non-ST elevation (NSTEMI) myocardial infarction Status: Acute (2) Dehydration ICD Code: E86.0 - Dehydration Status: Resolved (3) HTN (hypertension) ICD Code: I10 - Essential (primary) hypertension Procedures heart cath Brief History - From Admission This is an 86-year-old male with a PMH of HTN and Hyperlipidemia who presented to the ER with complaint of chest pain starting earlier tonight. States had acute onset of substernal chest pain while watching TV, thought it was indigestion, however had recurrent episode shortly after lasting several hours. No associated SOB or diaphoresis. On arrival, BP 129/103, HR 78, O2 sat 99% on RA, Afebrile. CBC unremarkable. Chemistry unremarkable except for GFR 53, BUN 23. Troponin 0.30. INR 0.9. EKG with no acute ischemia. CXR negative. Started on Heparin gtt in ER. CBC/BMP: 06/12/17 0448 06/12/17 0448 Significant Findings Laboratory Tests Test 06/11/17 01:40 06/11/17 07:20 06/12/17 04:48 Neutrophils (%) (Auto) 77.5 % (16.0-70.0) 74.3 % (16.0-70.0) Activated Partial Thromboplast Time 22.6 SEC (24.3-30.1) Blood Urea Nitrogen 23 MG/DL (7-18) 21 MG/DL (7-18) Estimat Glomerular Filtration Rate 53 ML/MIN (>89) 64 ML/MIN (>89) Creatine Kinase MB 8.0 NG/ML (0.5-3.6) Troponin I 0.30 NG/ML (0.02-0.05) 0.45 NG/ML (0.02-0.05) Platelet Count 139 TH/MM3 (150-450) Monocytes (%) (Auto) 8.3 % (0.0-8.0) Total Protein 6.0 GM/DL (6.4-8.2) Albumin 2.8 GM/DL (3.4-5.0) Chloride Level 108 MEQ/L (98-107) Triglycerides Level 169 MG/DL (42-150) HDL Cholesterol 30.1 MG/DL (40.0-60.0) Hospital Course 86y/o pt with hx of htn hld, admitted with cp , NSTEMI , protocol initiated , pt wemt to cath , cardiology cleared pt for dc to ff in 1 week Pt Condition on Discharge: Good Discharge Disposition: Discharge Home Discharge Time: <= 30 minutes Discharge Instructions DIET: Follow Instructions for: Heart Healthy Diet Activities you can perform: Weight Bearing as Forest Follow up Referrals: Cardiology - 1 Week with Rikki Granados MD New Medications: Aspirin (Aspirin Low Strength) 81 Mg Chew 81 MG PO DAILY for cad, #30 EA Lisinopril (Lisinopril) 20 Mg Tab 20 MG PO DAILY for htn, #30 TAB Metoprolol Tartrate (Metoprolol Tartrate) 25 Mg Tab 25 MG PO Q12HR for c ad, #60 TAB Ticagrelor (Brilinta) 90 Mg Tab 90 MG PO BID for cad, #30 TAB Continued Medications: Rosuvastatin (Crestor) 10 Mg Tab 10 MG PO DAILY for Cholesterol Management, #30 TAB 0 Refills Alberto Graff MD Jun 12, 2017 18:43
== END 2017-06-12 11:00 | disposition home or self-care (01) | DRG 247 ==
LOC: NEPE 00:59 → NEDA 02:36 → NEPGCP 04:15 → HCIS 11:33 → HCPC 21:37
PROVIDERS: ADMIT Hospitalist; ATTEND Hospitalist
PROC: 4A023N7 Measurement of Cardiac Sampling and Pressure, Left Heart, Percutaneous Approach (ICD-10-PCS; 2017-06-11)
PROC: B2111ZZ Fluoroscopy of Multiple Coronary Arteries using Low Osmolar Contrast (ICD-10-PCS; 2017-06-11)
PROC: B2151ZZ Fluoroscopy of Left Heart using Low Osmolar Contrast (ICD-10-PCS; 2017-06-11)
PROC: B41F1ZZ Fluoroscopy of Right Lower Extremity Arteries using Low Osmolar Contrast (ICD-10-PCS; 2017-06-11)
PROC: 027136Z Dilation of Coronary Artery, Two Arteries with Three Drug-eluting Intraluminal Devices, Percutaneous Approach (ICD-10-PCS; principal; 2017-06-11 10:00)
DX: I21.4 Non-ST elevation (NSTEMI) myocardial infarction (principal); E86.0 Dehydration; I25.10 Atherosclerotic heart disease of native coronary artery without angina pectoris; I10 Essential (primary) hypertension; E78.5 Hyperlipidemia, unspecified
CPT/HCPCS: 71010; 80053; 80061; 82550; 82552; 83690; 83735; 84484; 85025; 85610; 85730; 92928; 92929; 93005; 93458; 96360; C1725; C1760; C1769; C1874; C1887; C1893; G0269; J0583; J1644; J2250; J7030; J7040; Q9967